=== PATIENT | female | born 1975 | race Two or more races ===

== ENCOUNTER 2024-12-03 02:43 | Emergency (ER) | payer OTHER ==
[~2024-12-03] VITALS: Ht 162.6 cm; Wt 59.6 kg
[2024-12-03 03:54] VITALS: TEMP 96.8; O2SAT 100
[2024-12-03 04:27] LABS: BASOPHILS % (AUTO) 0.4 % (0-1); EOSINOPHILS % (AUTO) 0.7 % (0-6); HEMATOCRIT 40.7 % (35.0-45.0); HEMOGLOBIN 13.7 g/dl (12.0-16.0); LYMPHOCYTES # (AUTO) 1.3 X10'3 (1.1-4.8); MEAN CORPUSCULAR HEMOGLOBIN 30.8 PG (27.0-31.0); MEAN CORPUSCULAR HGB CONC 33.5 g/dL (33.0-36.5); MEAN PLATELET VOLUME 8.1 FL (7.4-10.4); MONOCYTES # (AUTO) 0.3 X10'3 (0-0.9); MONOCYTES % (AUTO) 5.6 % (2-12); NEUTROPHILS # (AUTO) 4.2 X10'3 (1.8-7.7); NEUTROPHILS % (AUTO) 71.3 % (42-75); PLATELET COUNT 201 X10'3 (140-440); RED BLOOD COUNT 4.43 X10'6 (4.20-5.60); RED CELL DISTRIBUTION WIDTH 15.2 % (11.5-14.5); WHITE BLOOD COUNT 5.9 X10'3 (4.5-11.0)
[2024-12-03 04:37] LABS: ALANINE AMINOTRANSFERASE 27 U/L (12-78); ALBUMIN 3.5 G/DL (3.4-5.0); ALBUMIN/GLOBULIN RATIO 0.9 (1.1-1.5); ALKALINE PHOSPHATASE 69 IU/L (46-116); ANION GAP 9 (8-16); ASPARTATE AMINO TRANSFERASE 16 U/L (10-37); BILIRUBIN,TOTAL 1.9 MG/DL (0.1-1.0); BLOOD UREA NITROGEN 9 MG/DL (7-18); BUN/CREATININE RATIO 13.6 (10.0-20.0); CALCIUM 8.2 MG/DL (8.5-10.1); CHLORIDE 104 MMOL/L (99-107); CREATININE 0.66 MG/DL (0.40-0.90); GLUCOSE 188 MG/DL (70-104); POTASSIUM 3.3 MMOL/L (3.5-5.1); SODIUM 140 MMOL/L (135-145); TOTAL CARBON DIOXIDE 27.2 MMOL/L (24-32); TOTAL PROTEIN 7.5 G/DL (6.4-8.2); eCRCL 91 ML/MIN; eGFR > 90 ML/MIN
[2024-12-03 04:45] LABS: ETHANOL 48 MG/DL (<10); PRO BRAIN NATRIURETIC PEPTIDE 90 PG/ML (0-125)
[2024-12-03] MEDS: ondansetron/PF 4mg/2ml inj IV ONE (04:56)
[2024-12-03] MEDS: famotidine/PF 10 mg/ml inj IV ONE (04:58)
[2024-12-03] MEDS: mag hydrox/Alum hydrox/simeth 30ml oral suspension PO ONE (04:59)
[2024-12-03] MEDS ORDERED: FAMO-129 PO (05:34)
[2024-12-03] MEDS ORDERED: ONDA-245 PO (05:34)
[2024-12-03 05:42] VITALS: BP 128/91; PULSE 70; RESP 16
== END 2024-12-03 05:42 | disposition home or self-care (01) ==
LOC: ER 02:45
DX: K29.70 Gastritis, unspecified, without bleeding (principal); R07.89 Other chest pain; K21.9 Gastro-esophageal reflux disease without esophagitis
CPT/HCPCS: 36415; 71045; 80053; 80320; 83880; 84484; 85025; 93005; 96374; 96375; 99285; J2405; J3490